=== PATIENT | female | born 1970 | race Asian ===

== ENCOUNTER 2016-09-24 15:06 | Emergency (ER) | payer BC, OTHER ==
--- NOTE | 2016-09-24 15:16 | EDPHY ---
[id number] ILLNESS: The patient is a 46 y/o female arriving via EMS complaining of acute onset swelling around her eyes and itchiness. 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 She noticed swelling around her eyes and felt itchy all over. She's had previous allergic reactions to unknown antigens that felt similar. She attempted to use her EpiPen, but accidently injected into her thumb. She denies throat swelling, wheezing or shortness of breath, dizziness, lightheadedness, abdominal pain, or vomiting. EMS administered 50mg IV Benadryl and 125mg IV Solumedrol en route for symptoms with some improvement. Patient continues to complain of diffuse itching and bilateral eyelid swelling. REVIEW OF SYSTEMS: A ten point review of systems was performed and is negative with the exception of the items mentioned in the HPI. Source: Patient Exam Limitations: No limitations - Personal History LMP (Females 10-55): 15-21 Days Ago Current Tetanus/Diphtheria Vaccine: Unsure Current Tetanus Diphtheria and Acellular Pertussis (TDAP): Unsure - Medical/Surgical History PMH: Allergic reactions. Hx Asthma: No Hx Chronic Respiratory Disease: No Hx Diabetes: No Hx Cardiac Disease: No Hx Renal Disease: No Hx Cirrhosis: No Hx Alcoholism: No Hx HIV/AIDS: No Hx Splenectomy or Spleen Trauma: No - Social History Smoking Status: Former smoker Additional Social History: Former smoker. - Physical Exam Exam: General Appearance: Alert. Vital signs reviewed. HR 108 BP 142/92. Eyes: Pupils equal and round, no conjunctival injection, no discharge. Anicteric. Bilateral eyelid swelling worse on right. ENT, Mouth: Mucous membranes are moist, no oropharyngeal erythema or edema. No angioedema. Neck: No lymphadenopathy, supple. Trachea midline. Respiratory: Lungs are clear to auscultation; no wheezes, rales, or rhonchi. Cardiovascular: Tachycardic; no murmur, rub, or gallop. Gastrointestinal: Abdomen is soft and nontender, no masses or organomegaly, bowel sounds normal. Skin: Warm and dry, diffuse urticaria. Back: Nontender to palpation over the thoracolumbar spine. Extremities: No lower extremity edema, no calf tenderness or swelling. Neurological: Alert and oriented. Moving all four extremities easily and equally. Psychiatric: Normal affect. Constitutional: Initial Vital Signs Temperature (C) 36.6 C 09/24/16 15:07 Heart Rate 101 H 09/24/16 15:07 Respiratory Rate 16 09/24/16 15:07 Blood Pressure 142/92 H 09/24/16 15:07 O2 Sat (%) 100 09/24/16 15:07 O2 Delivery Mode Room Air Allergies/Adverse Reactions: Sulfa (Sulfonamide Antibiotics) Allergy (Verified 09/24/16 15:10) Home Medications: Medication Instructions Recorded EPINEPHRINE [EPIPEN] 0.3 mg IM ONCE #2 syr 09/24/16 predniSONE 20 mg PO BID #3 tablet 09/24/16 Medical Decision Making ED Course/Re-evaluation: IV established by EMS. 40mg PO Pepcid administered. Plan to observe for rebound reaction over the next 2 hours. 4:20 p.m.: Patient re-examined. She is resting comfortably. Some of her eyelid edema has subsided. Lungs are clear to auscultation. Oropharynx is without edema. She is swallowing easily. Will continue to observe. 5:20 PM: Remains without respiratory distress. No oropharyngeal edema. No wheezing. Will DC home to continue prednisone, antihistamines, pepcid. RX for epipen written. Differential Diagnosis: I considered a differential diagnosis that includes but is not limited to anaphylaxis, angioedema, Urticaria, cellulitis. - Data Points Medications Given: Discontinued Medications Famotidine (Pepcid) 40 mg PO EDNOW ONE Stop: 09/24/16 15:26 Last Admin: 09/24/16 15:30 Dose: 40 mg Departure - Departure Disposition: Home, Routine, Self-Care Clinical Impression: Allergic reaction Qualifiers: Qualifier Code: (T78.40XA) Allergy, unspecified, initial encounter Condition: Good Instructions: General Allergic Reaction (ED), Epinephrine (By injection) Additional Instructions: Sujey an EpiPen with you at all times. Take the prednisone as prescribed the next 3 days. Continue with Benadryl 25-50 mg every 6-8 hours for itching and hives. Try Sarna lotion for itching or one of the anti-itch Aveeno lotions. Take Pepcid daily as long as you are taking the prednisone. Referrals: NONE *PRIMARY CARE P,. [Primary Care Provider] - As per Instructions Prescriptions: EPINEPHRINE [EPIPEN] 0.3 mg IM ONCE #2 syr predniSONE 20 mg PO BID #3 tablet Report Scribed for: Vivi Jarquin Report Scribed by: Jayda Kaplan Date of Report: 09/24/16 Time of Report: 15:17 Physician Review and Approval Statement: 09/24/16 15:16 Portions of this note were transcribed by the anesthesiology medical doctor. I, Dr. Vivi Jarquin, personally performed the history, physical exam, and medical decision- making; and confirmed the accuracy of the information in the transcribed note.
[2016-09-24] MEDS ORDERED: FAMOTIDINE 20 MG TAB PO ONE (15:25)
[2016-09-24 16:53] VITALS: PULSE 97; RESP 14
[2016-09-24 17:18] VITALS: BP 110/69; TEMP 97.3; O2SAT 98
== END 2016-09-24 17:32 | disposition home or self-care (01) ==
DX: T78.40XA Allergy, unspecified, initial encounter (principal); Z87.891 Personal history of nicotine dependence